=== PATIENT | male | born 1995 | race Two or more races ===

== ENCOUNTER 2017-04-15 12:41 | Emergency (ER) | payer OTHER ==
[~2017-04-15] VITALS: Ht 167.6 cm; Wt 68.0 kg
[2017-04-15 13:15] VITALS: BP 114/84
== END 2017-04-15 13:48 | disposition home or self-care (01) ==
LOC: ER 12:41
DX: J45.990 Exercise induced bronchospasm (principal)
CPT/HCPCS: 93005

== ENCOUNTER 2018-04-27 19:08 | Emergency (ER) | payer OTHER ==
[~2018-04-27] VITALS: Ht 170.2 cm; Wt 59.0 kg
[2018-04-27 19:35] VITALS: BP 144/79
[2018-04-27] MEDS ORDERED: ONDANSETRON HCL 4 MG/2 ML VIAL IM ONE (19:45)
[2018-04-27] MEDS ORDERED: HYDROmorphone HCL 2 MG/ML VL IM ONE (19:45)
== END 2018-04-27 21:21 | disposition home or self-care (01) ==
LOC: ER 19:08
DX: S43.102A Unspecified dislocation of left acromioclavicular joint, initial encounter (principal); W19.XXXA Unspecified fall, initial encounter; Y93.66 Activity, soccer; Y99.8 Other external cause status; Y92.89 Other specified places as the place of occurrence of the external cause
CPT/HCPCS: 29105; 73030; 96372; 99284; J1170; J2405

== ENCOUNTER 2021-09-14 10:22 | Emergency (ER) | payer OTHER ==
[~2021-09-14] VITALS: Ht 170.2 cm; Wt 72.6 kg
[2021-09-14 11:06] VITALS: BP 159/84
[2021-09-14] MEDS ORDERED: IBUP600T27 PO (11:36)
== END 2021-09-14 11:47 | disposition home or self-care (01) ==
LOC: ER 10:22
DX: S93.401A Sprain of unspecified ligament of right ankle, initial encounter (principal); W51.XXXA Accidental striking against or bumped into by another person, initial encounter; Y93.66 Activity, soccer; Y92.89 Other specified places as the place of occurrence of the external cause; Y99.8 Other external cause status
CPT/HCPCS: 73610